=== PATIENT | female | born 1990 | race Caucasian/White ===

== ENCOUNTER 2019-03-18 15:27 | Emergency (ER) | payer OTHER ==
[2019-03-18 15:52] VITALS: BP 134/78; PULSE 99; TEMP 98.2; BMI 23.7
--- NOTE | 2019-03-18 16:29 | PDOC ---
*Physical Exam - Vital Signs Last Vital Signs Temp Pulse Resp BP Pulse Ox 98.2 F 99 H 18 134/78 100 03/18/19 15:49 03/18/19 15:49 03/18/19 15:49 03/18/19 15:49 03/18/19 15:49 Medical Decision Making - Medical Decision Making 03/18/19 16:27 28 yo F no prior medical history presenting to the ER with a complaint of right sided headache Awoke with symptoms No nausea or vomiting Headache was initially 05/17 currently 11/17 No weakness Pt does have numbness on the right side of her head which has worsened No head trauma Pt seen by Midlevel Provider under my direct supervision Pt interviewed and examined Ancillary studies reviewed I agree with plan as outlined by Midlevel Provider
[2019-03-18] MEDS ORDERED: METOCLOPRAMIDE HCL INJECTION 10 MG/2 ML VIAL IVPUSH ONE (16:33)
[2019-03-18] MEDS ORDERED: SODIUM CHLORIDE 0.9% 500 ML INFUS.BAG IV ONE (16:34)
[2019-03-18 16:57] LABS: BASO % 1.2 % (0-2.0); EOS % 4.5 % (0-4.5); HEMATOCRIT 39.6 % (32.4-45.2); HEMOGLOBIN 12.5 GM/dL (10.7-15.3); LYMPH % 26.9 % (8-40); MCH 24.6 pg (25.7-33.7); MCHC 31.5 g/dl (32.0-36.0); MEAN CELL VOLUME 78.2 fl (80-96); MEAN PLT VOLUME 9.1 fl (7.5-11.1); MONO % 7.5 % (3.8-10.2); NEUT % 59.9 % (42.8-82.8); PLATELET COUNT 280 K/MM3 (134-434); RBC 5.07 M/mm3 (3.60-5.2); RDW 14.6 % (11.6-15.6); WHITE BLOOD COUNT 6.1 K/mm3 (4.0-10.0)
[2019-03-18 16:57] LABS: URINE APPEARANCE CLEAR; URINE BILIRUBIN NEGATIVE (NEGATIVE); URINE COLOR YELLOW; URINE GLUCOSE (UA) NEGATIVE (NEGATIVE); URINE KETONE TRACE (NEGATIVE); URINE LEUK ESTERASE NEGATIVE (NEGATIVE); URINE NITRITE NEGATIVE (NEGATIVE); URINE PROTEIN NEGATIVE (NEGATIVE); URINE UROBILINOGEN 0.2 mg/dL (0.2-1.0)
--- NOTE | 2019-03-18 17:17 | PDOC ---
History of Present Illness - General Chief Complaint: Headache Stated Complaint: RT SIDE HEAD NUMBNESS Time Seen by Provider: 03/18/19 15:58 History Source: Patient Exam Limitations: No Limitations - History of Present Illness Initial Comments: 03/18/19 17:16 28 yo F w/ no known PMHx comes in c/o a R sided parietal/frontal dull 7/10 headache upon waking up this am, associated with R sided facial numbness and mild RUE discomfort/weakness, mild lightheadedness. Now the headache is almost completely resolved, but numbness persists. NO other complaints today, no fever/ chills, no NVD, no vision changes, no dizziness, no speech changes, no chest pain, no SOB, no loss of appetite, no weight loss, no abdominal pain, no other complaints today, no prior h/o similar symptoms, no h/o migraines, no sore throat, no LE symptoms/weakness/numbness. 03/18/19 17:19 Past History - Past Medical History Allergies/Adverse Reactions: Allergies Allergy/AdvReac Type Severity Reaction Status Date / Time No Known Allergies Allergy Verified 03/18/19 15:47 Home Medications: Ambulatory Orders Ondansetron [Zofran Odt -] 4 mg SL TID #21 od.tablet 05/09/16 COPD: No - Immunization History Immunization Up to Date: Yes - Suicide/Smoking/Psychosocial Hx Smoking History: Never smoked Information on smoking cessation initiated: No Hx Alcohol Use: No Drug/Substance Use Hx: No Substance Use Type: None Review of Systems - Review of Systems Able to Perform ROS?: Yes Constitutional: No: Chills, Fever, Malaise, Night Sweats HEENTM: No: Eye Pain, Recent change in vision, Throat Pain Respiratory: No: Cough, Shortness of Breath Cardiac (ROS): No: Chest Pain, Palpitations, Chest Tightness ABD/GI: No: Diarrhea, Nausea, Vomiting, Abdominal cramping : No: Dysuria, Hematuria Musculoskeletal: No: Back Pain Integumentary: No: Rash Neurological: Yes: Headache, Numbness. No: Seizure, Tingling, Dizziness Psychiatric: No: Change in Appetite Endocrine: No: Unexplained Weight Loss *Physical Exam - Vital Signs Last Vital Signs Temp Pulse Resp BP Pulse Ox 98.2 F 99 H 18 134/78 100 03/18/19 15:49 03/18/19 15:49 03/18/19 15:49 03/18/19 15:49 03/18/19 15:49 - Physical Exam General Appearance: Yes: Nourished. No: Apparent Distress HEENT: positive: ISATU, Normal ENT Inspection, Normal Voice, Other (No tenderness over R temporal artery). negative: Pale Conjunctivae, Scleral Icterus (R), Scleral Icterus (L) Neck: positive: Supple. negative: Decreased range of motion, Tender midline Respiratory/Chest: positive: Lungs Clear, Normal Breath Sounds. negative: Respiratory Distress, Accessory Muscle Use Cardiovascular: positive: Regular Rhythm, Regular Rate Comments:: A+Ox3 (person, place, time), normal sensorium. Visual [place]: full to confrontation. Pupils: equal, round, and reactive to light. EOM: intact and smooth pursuit. No nystagmus. Facial strength: muscles of mastication, facial expression, shoulder shrug, and head turn normal. Hearing: grossly intact b/l Mouth: tongue protrudes midline and moves Left/Right equal b/l. Uvula rises symmetrically. Motor: UE and LE 5/5 diffusely. Sensation: R sided facial numbness -along distribution of V1 of trigeminal nerve , and R parietal numbness, subjective. Otherwise normal sensory function to light and pinprick touch Cerebellum: [id number]-[id number] normal without dysmetria or intention tremor. [id number]-[id number] wnl. No dysdiadodyskinesia. Gait: unassisted, steady, Romberg negative. No atalgia, difficulty in ambulation or ataxia. Gastrointestinal/Abdominal: positive: Normal Bowel Sounds, Soft. negative: Tender Musculoskeletal: positive: Normal Inspection. negative: CVA Tenderness, Decreased Range of Motion Extremity: positive: Normal Capillary Refill, Normal Inspection, Normal Range of Motion. negative: Tender, Pedal Edema Integumentary: positive: Normal Color, Dry. negative: Jaundice, Rash Neurologic: positive: Fully Oriented, Alert, Normal Mood/Affect ED Treatment Course - LABORATORY CBC & Chemistry Diagram: 03/18/19 16:40 03/18/19 16:40 - ADDITIONAL ORDERS Additional order review: Laboratory Results 03/18/19 16:37 Urine Color Yellow Urine Appearance Clear Urine pH 6.0 Ur Specific [place] 1.030 Urine Protein Negative Urine Glucose (UA) Negative Urine Ketones Trace H Urine Blood Negative Urine Nitrite Negative Urine Bilirubin Negative Urine Urobilinogen 0.2 Ur Leukocyte Esterase Negative - RADIOLOGY Radiology Studies Ordered: Category Date Time Status HEAD CT WITHOUT CONTRAST [CT] Stat CT Scan 03/18/19 16:34 Ordered - Medications Given in the ED: ED Medications Discontinued Medications Generic Name Dose Route Start Last Admin Trade Name Beatriz PRN Reason Stop Dose Admin Sodium Chloride 1,000 ml 03/18/19 16:34 03/18/19 16:50 Normal Saline - IV 03/18/19 16:35 1,000 ml ONCE ONE Administration Medical Decision Making - Medical Decision Making 03/18/19 17:28 28 yo w/ headache, numbness to V1 and R parietal aspect of face. Will do basic labs, check UCG, do a CT head R/O mass and reassess 03/18/19 18:34 Pt feeling much better, CT read unremarkable. Will give a copy to patient, will give neuro follow up. I emphasized the importance of Neuro follow up, I told her that everything cannot be detected on CT, if symptoms persist, she might need an MRI, she verbalizes understanding and agrees with follow up plan. Return for worsening/concerning symptoms Case discussed with attending who agrees with plan *DC/Admit/Observation/Transfer Diagnosis at time of Disposition: Right facial numbness Headache Qualifiers: Headache type: unspecified Headache chronicity pattern: unspecified pattern Intractability: not intractable Qualified Code(s): R51 - Headache - Discharge Dispostion Disposition: HOME Condition at time of disposition: Stable - Referrals Referrals: Rand Hunter MD [Staff Physician] - - Patient Instructions Additional Instructions: It is imperative to follow up with Neurology as instructed. Please bring CT results with you as provided. Return to the ER for worsening/concerning symptoms including vision changes, dizziness, speech changes, weakness, worsening numbness. - Post Discharge Activity
[2019-03-18 17:19] LABS: ALBUMIN 4.2 g/dl (3.4-5.0); ALK PHOS 52 U/L (45-117); ANION GAP 6 MMOL/L (8-16); BILIRUBIN,TOTAL 0.3 mg/dL (0.2-1); BLOOD UREA NITROGEN 9 mg/dL (7-18); CHLORIDE 106 mmol/L (98-107); CO2 26 mmol/L (21-32); CREATININE 0.6 mg/dL (0.55-1.3); GLUCOSE,RANDOM 109 mg/dL (74-106); MAGNESIUM 2.8 mg/dL (1.8-2.4); PHOSPHOROUS 3.6 mg/dL (2.5-4.9); POTASSIUM 3.8 mmol/L (3.5-5.1); SGOT/AST 14 U/L (15-37); SGPT/ALT 19 U/L (13-61); SODIUM 139 mmol/L (136-145); TOT PROT 7.7 g/dl (6.4-8.2)
[2019-03-18] MEDS ORDERED: METOCLOPRAMIDE HCL INJECTION 10 MG/2 ML VIAL ONE (17:41)
== END 2019-03-18 18:59 | disposition home or self-care (01) ==
LOC: JER 15:27
PROC: 3E0337Z Introduction of Electrolytic and Water Balance Substance into Peripheral Vein, Percutaneous Approach (ICD-10-PCS; principal; 2019-03-18)
PROC: 3E033GC Introduction of Other Therapeutic Substance into Peripheral Vein, Percutaneous Approach (ICD-10-PCS; 2019-03-18)
DX: R51 Headache (principal); R20.0 Anesthesia of skin
CPT/HCPCS: 36415; 70450-TC; 80053; 81003; 83735; 84100; 84702; 84703; 85025; 86850; 86900; 86901; 99282-25